=== PATIENT | male | born 1975 | race Caucasian/White ===

== ENCOUNTER 2016-12-19 09:00 | Day surgery (SDC) | payer MEDICARE, OTHER ==
[~2016-12-19] VITALS: Ht 167.6 cm; Wt 92.4 kg
[2016-12-19 10:32] VITALS: Ht 167.6 cm; Wt 92.4 kg
[2016-12-19] MEDS ORDERED: NO MEDS. (10:33)
[2016-12-19 11:01] VITALS: BP 115/76; PULSE 79; RESP 16
[2016-12-19] MEDS ORDERED: MIDAZOLAM 1 MG/ML 2 ML INJ ONE ×3 (12:07)
[2016-12-19] MEDS ORDERED: FENTAnyl 50 MCG/ML VIAL ONE (12:07)
--- NOTE | 2016-12-19 12:16 | GILP ---
DATE OF PROCEDURE: NAME OF PROCEDURE: Colonoscopy and biopsy. PREOPERATIVE DIAGNOSES: 1. Change in bowel habits, rule out colon polyps. 2. Colorectal carcinoma. 3. Diverticulosis. POSTOPERATIVE DIAGNOSES: 1. Suboptimal preparation. 2. A 4 mm polyp noted just about 5 cm above the anus. Biopsy was done, and 2 Hemoclips were applie d because of the bleeding. DESCRIPTION OF PROCEDURE: After the informed written consent was obtained, the patient was asked to lie on the left lateral side. 5 mg Versed and 100 mcg of fentanyl was given as intravenous anesthe digna. When the patient became somnolent, the Olympus video colonoscope was introduced into the rectum. Th e scope was advanced to the hepatic flexure. A large amount of solid stool noted in the hepatic fle xure. Scope could not be advanced. At 5 cm from the anus, there is evidence of a 4 mm polyp noted in a fold. This was biopsied because of some bleeding. Two Hemoclips were applied, and the bleedin g stopped, and the procedure was terminated. PLAN: Recommend repeat colonoscopy in 3 months. Dictated By: DUDLEY CORTEZ/GINA Conf#: [id number] DID#: [id number] CC: GISSELLE MOORE MD;*End*
[2016-12-19 12:17] VITALS: BP 132/81; PULSE 81; RESP 22
== END 2016-12-19 13:16 | disposition home or self-care (01) ==
LOC: GIL 09:00
PROVIDERS: ATTEND Internal Medicine Gastroenterology
DX: R19.4 Change in bowel habit (principal); K63.5 Polyp of colon
CPT/HCPCS: 45380; 88305; J2250; J3010

== ENCOUNTER 2017-04-14 09:49 | Emergency (ER) | payer MEDICARE, OTHER ==
[~2017-04-14] VITALS: Ht 157.5 cm; Wt 89.0 kg
[~2017-04-14 09:49] MED LIST: NO MEDS.
[2017-04-14 09:54] VITALS: Ht 157.5 cm; Wt 89.0 kg
[2017-04-14] MEDS ORDERED: FEXO180T61 PO (11:07)
[2017-04-14] MEDS ORDERED: FLUT9.9S NASAL (11:08)
--- NOTE | 2017-04-14 11:15 | ERD ---
ER Documentation Chief Complaint Date/Time DATE: 04/14/17 TIME: 11:12 Chief Complaint itchy eye, sneezing x 4 days HPI This is a 42-year-old male presents to the ER with itchy watery eyes and continued sneezing over the last 4 days. Patient has not tried anything for his symptoms. He denies any sore throat. He denies any cough. Patient denies any eye discharge or vision loss or vision changes. He denies any chest pain or shortness of breath. He has a history of allergic rhinitis. ROS 12 point review of systems was done, all negative except per HPI. Medications Home Meds Active Scripts Fluticasone Propionate (Flonase Allergy Relief) 9.9 Ml [place].susp, 1 SPRAY NASAL BID, #1 BOTTLE TO EACH NOSTRIL Prov:LEONIDAS SHAFFER 04/14/17 Fexofenadine Hcl* (Nadia*) 180 Mg Tablet, 180 MG PO DAILY, #30 TAB Prov:LEONIDAS SHAFFER 04/14/17 Reported Medications [No Meds.] No Conflict Check 12/19/16 Allergies Allergies: Coded Allergies: No Known Allergy (Unverified , 12/19/16) PMhx/Soc History of Surgery: No Anesthesia Reaction: No Hx Neurological Disorder: No Hx Respiratory Disorders: No Hx Cardiac Disorders: No Hx Psychiatric Problems: No Hx Miscellaneous Medical Probl: No Hx Alcohol Use: No Hx Substance Use: No Hx Tobacco Use: No Physical Exam Vitals Vital Signs Date Time Temp Pulse Resp B/P Pulse Ox O2 Delivery O2 Flow Rate FiO2 04/14/17 09:54 98.1 85 18 135/74 99 Physical Exam GENERAL: The patient is well-developed, well-nourished, in no acute distress. NECK: Cervical spine is non tender with no step off. Supple, no nuchal rigidity HEENT: Atraumatic. Pupils equal, round and reactive to light. Extraocular muscles are grossly intact. Conjunctivae pink, no discharge. Bilateral tympanic membranes are clear with no evidence of erythema, effusion or dulling of the light reflex. Tonsilar erythema with no exudates or uvular deviation. Clear rhinorrhea. RESPIRATORY: Clear to auscultation bilaterally. There are no rales, wheezes or rhonchi. HEART: Regular rate and rhythm. No murmurs, clicks, rubs or gallops. EXTREMITIES: No clubbing or cyanosis. Full range of motion. Grossly neurovascularly intact. NEUROLOGIC: Alert and oriented. Cranial nerves II through XII are intact. SKIN: There is no rash. The skin is warm and dry. Procedures/MDM Differential diagnosis includes but is not limited to; Viral URI, allergic rhinitis, bronchitis, pertussis,pneumonia. This is likely allergic rhinitis. Clinical suspicion for pneumonia is low as patient appears well, is not hypoxic or in any respiratory distress. Additionally, patients physical examination is benign. Plan was discussed with patient they understand and agree. Patient needs to follow up with PCP in 1-2 days or return to ER sooner if symptoms worsen. Departure Diagnosis: Primary Impression: Allergic rhinitis Condition: Stable Patient Instructions: Allergic Rhinitis Additional Instructions: Call your primary care doctor TOMORROW for an appointment during the next 1-2 days.See the doctor sooner or return here if your condition worsens before your appointment time. LEONIDAS SHAFFER Apr 14, 2017 11:14
== END 2017-04-14 11:29 | disposition home or self-care (01) ==
LOC: FTE 09:49
DX: J30.9 Allergic rhinitis, unspecified (principal)
CPT/HCPCS: 99283

== ENCOUNTER 2017-05-04 12:58 | Emergency (ER) | payer MEDICARE, OTHER ==
[~2017-05-04] VITALS: Ht 167.6 cm; Wt 92.0 kg
[~2017-05-04 12:58] MED LIST changes: +FEXO180T61 PO; +FLUT9.9S NASAL
[2017-05-04 13:20] VITALS: Ht 167.6 cm; Wt 92.0 kg
[2017-05-04] MEDS ORDERED: CETI10CA PO (15:19)
[2017-05-04] MEDS ORDERED: TETRACAINE 0.5% 4 ML OPH BOTH EYES ONE (15:30)
[2017-05-04] MEDS ORDERED: FLUORESCEIN STRIP BOTH EYES ONE (15:30)
--- NOTE | 2017-05-04 15:36 | ERD ---
ER Documentation Chief Complaint Date/Time DATE: 05/04/17 TIME: 15:34 Chief Complaint pt bib self with c/o left eye reddness and pain since this am HPI 42-year-old male otherwise healthy comes in with left-sided eye redness and itching that started this morning. Patient states that he had a few episodes of frequent sneezing that occurred yesterday and believes that the redness started after that. His main complaint is itching, he denies visual field deficits, diplopia, or visual changes. He denies eye trauma, foreign body entrance. Patient denies fevers or chills. No crusting or drainage from the eye. ROS All systems reviewed and are negative except as per history of present illness. Medications Home Meds Active Scripts Cetirizine Hcl* (Zyrtec*) 10 Mg Capsule, 10 MG PO DAILY, #10 TAB.CHEW Prov:MILO YANEZ PA-C 05/04/17 Fluticasone Propionate (Flonase Allergy Relief) 9.9 Ml [place].susp, 1 SPRAY NASAL BID, #1 BOTTLE TO EACH NOSTRIL Prov:LEONIDAS SHAFFER 04/14/17 Fexofenadine Hcl* (Nadia*) 180 Mg Tablet, 180 MG PO DAILY, #30 TAB Prov:LEONIDAS SHAFFER 04/14/17 Reported Medications [No Meds.] No Conflict Check 12/19/16 Allergies Allergies: Coded Allergies: No Known Allergy (Unverified , 12/19/16) PMhx/Soc History of Surgery: No Anesthesia Reaction: No Hx Neurological Disorder: No Hx Respiratory Disorders: No Hx Cardiac Disorders: No Hx Psychiatric Problems: No Hx Miscellaneous Medical Probl: No Hx Alcohol Use: No Hx Substance Use: No Hx Tobacco Use: No Smoking Status: Never smoker Physical Exam Vitals Vital Signs Date Time Temp Pulse Resp B/P Pulse Ox O2 Delivery O2 Flow Rate FiO2 05/04/17 13:20 97.3 90 18 140/82 96 Physical Exam General: Well-developed, well-nourished. The patient appears in no acute distress. HEENT: Head is normocephalic, atraumatic. No scleral icterus. Eye Exam: Visual [place]: Intact in all four quadrants bilaterally Lac ducts/glands: No swelling Lids w/ evertion: Normal, no foreign body Conj/[place]: Left lateral subconjunctival hemorrhage, no hyphema, no ulceration, right eye unremarkable, negative Fluorescein/Jamir's Anterior Chamber: Clear Tonopen readings: 25 and 27 Neck: Supple. Nontender. Lungs: Clear to auscultation. Normal air movement. Heart: Regular rate and rhythm. S1 and S2 are normal. No murmurs, gallops, or rubs. Abdomen: Nondistended. Extremities: No clubbing or cyanosis. Moving extremities x 4. No weakness. Neurologic: Alert and oriented 3. No focal deficits. Normal speech and gait. Skin: Normal turgor. No rash or lesions. Results 24 hrs Current Medications Medications (Trade) Dose Ordered Sig/Sera Route PRN Reason Start Time Stop Time Status Last Admin Dose Admin Tetracaine HCl (Tetracaine 0.5% Steri-Unit [place]) 1 drop ONCE ONCE BOTH EYES 05/04/17 15:30 05/04/17 15:31 DC Fluorescein Sodium (Nvygh-L-Sdpfd) 1 strip ONCE ONCE BOTH EYES 05/04/17 15:30 05/04/17 15:31 DC Procedures/MDM 22-year-old male comes in with a subconjunctival hemorrhage, patient does complain of itching, and will be given allergy medication for this. There are no signs of hypopyon, hyphema, ulceration, infectious origin, acute angle- closure glaucoma, iritis. Departure Diagnosis: Primary Impression: Subconjunctival hemorrhage of left eye Condition: Good Patient Instructions: Subconjunctival Hemorrhage MILO YANEZ PA-C May 04, 2017 15:36
== END 2017-05-04 15:35 | disposition home or self-care (01) ==
LOC: FTE 12:58
DX: H11.32 Conjunctival hemorrhage, left eye (principal)
CPT/HCPCS: 99283

== ENCOUNTER 2017-07-20 12:21 | Emergency (ER) | payer MEDICARE, OTHER ==
[~2017-07-20] VITALS: Ht 162.6 cm; Wt 89.0 kg
[~2017-07-20 12:21] MED LIST changes: +CETI10CA PO
[2017-07-20 13:03] VITALS: Ht 162.6 cm; Wt 89.0 kg
[2017-07-20] MEDS ORDERED: MINE3.5O30 LEFT EYE (14:47)
--- NOTE | 2017-07-20 14:52 | ERD ---
ER Documentation Chief Complaint Chief Complaint left eye redness noticed this AM. Denies injury or foreign body exposure HPI This 42-year-old male presents with left eye redness during this morning. He denies any history of trauma or inciting events although he may have done some shampoo in his eye while showering this morning. Denies any visual changes or visual field deficits. Is a contact lens use. Denies any recent coughing or trauma. ROS All systems reviewed and are negative except as per history of present illness. Medications Home Meds Active Scripts Mineral Oil/Petrolatum,White (ARTIFICIAL TEARS EYE OINT) 3.5 Gm Oint...g., 1 APPLIC LEFT EYE QID Y for DRY EYES for 10 Days, #1 EA Prov:LARA KHOURY MD 07/20/17 Cetirizine Hcl* (Zyrtec*) 10 Mg Capsule, 10 MG PO DAILY, #10 TAB.CHEW Prov:MILO YANEZ PA-C 05/04/17 Fluticasone Propionate (Flonase Allergy Relief) 9.9 Ml [place].susp, 1 SPRAY NASAL BID, #1 BOTTLE TO EACH NOSTRIL Prov:LEONIDAS SHAFFER 04/14/17 Fexofenadine Hcl* (Nadia*) 180 Mg Tablet, 180 MG PO DAILY, #30 TAB Prov:LEONIDAS SHAFFER 04/14/17 Reported Medications [No Meds.] No Conflict Check 12/19/16 Allergies Allergies: Coded Allergies: No Known Allergy (Unverified , 12/19/16) PMhx/Soc History of Surgery: No Anesthesia Reaction: No Hx Neurological Disorder: No Hx Respiratory Disorders: No Hx Cardiac Disorders: No Hx Psychiatric Problems: No Hx Miscellaneous Medical Probl: No Hx Alcohol Use: No Hx Substance Use: No Hx Tobacco Use: No Physical Exam Vitals Vital Signs Date Time Temp Pulse Resp B/P Pulse Ox O2 Delivery O2 Flow Rate FiO2 07/20/17 13:03 98.2 80 18 139/83 96 Physical Exam Const: [] Alert, [id number], pleasant. Head: Atraumatic Eyes: Is a sub-conjunctival hemorrhage extending from 3:00 to 8:00 in the left eye. Anterior chambers appear normal. Eyes PERRLA and extraocular movements intact. No periorbital proptosis or erythema. ENT: Normal External Ears, Nose and Mouth. Neck: Full range of motion..~ No meningismus. Resp: Clear to auscultation bilaterally Cardio: Regular rate and rhythm, no murmurs Abd: Soft, non tender, non distended. Normal bowel sounds Skin: No petechiae or rashes Back: No midline or flank tenderness Ext: No cyanosis, or edema Neur: Awake and alert Psych: Normal Mood and Affect Procedures/MDM Patient presents with a left eye subconjunctival hemorrhage. Visual acuity shows no acute abnormalities. He will be treated with artificial tears and primary care follow-up and ophthalmology follow-up for new or worsening or persistent symptoms. There is no evidence of orbital cellulitis, acute glaucoma , visual field deficits, threats to vision, optic neuritis, retinal artery ischemia, additional emergencies. Patient should return however for new or worsening symptoms or with ophthalmology as directed. Departure Diagnosis: Primary Impression: Subconjunctival hemorrhage Laterality: left Qualified Code: H11.32 - Subconjunctival hemorrhage of left eye Condition: Stable Patient Instructions: Subconjunctival Hemorrhage Referrals: [facility] Hours: Mon - Fri 9:00 AM - 5:00 PM Additional Instructions: Broken blood vessel usually resolves without treatment in 1-2 weeks. See ophthalmology for pain, new or worsening symptoms. Recheck otherwise for fevers , difficulties with vision, discharge, new symptoms. LARA KHOURY MD Jul 20, 2017 14:52
== END 2017-07-20 15:33 | disposition home or self-care (01) ==
LOC: FTE 12:21
DX: H11.32 Conjunctival hemorrhage, left eye (principal)
CPT/HCPCS: 99283